=== PATIENT | female | born 1990 | race Caucasian/White ===

== ENCOUNTER 2019-07-18 13:19 | Emergency (ER) | payer MEDICAID, SELFPAY ==
[2019-07-18 13:56] VITALS: BP 108/62; PULSE 81; RESP 16; TEMP 36.6; O2SAT 98; BMI 18.4
--- NOTE | 2019-07-18 14:03 | ED_ITS ---
HPI - Skin/Abscess/Foreign Bdy General: Chief complaint: Skin/Abscess/Foreign Body Stated complaint: has MRSA/may be in blood Time Seen by Provider: 07/18/19 13:55 Source: patient Mode of arrival: ambulatory Limitations: no limitations History of Present Illness: HPI narrative: Patient was put on mupirocin ointment last week to treat a skin infection. Patient reports minimal i mprovement is noted to the area. Patient was sent here from urgent care for concerns. Patient appears well. Patient appears in no pain. Review of Systems General: Reports: 10 or more systems reviewed and unremarkable except in HPI and below Skin/Breast: Reports: rash PFSH ED PFSH: Statuses (acute, chronic, etc) shown below reflect problem list status as previously entered and may not be historically accurate Social History (Updated 07/16/19 @ 16:16 by Zandra Purvis LPN) Smoking and tobacco status: current every day smoker Female Reproductive History: Date of last menstrual period: 07/03/19 Physical Exam Const: COMMON NORMALS: no apparent distress and oriented x3 GENERAL APPEAR ANCE: cooperative HENMT: COMMON NORMALS: normocephalic, external ears normal, EAC's normal, TM's normal bilaterally and external nose normal HEAD & SCALP: normal to inspection and normocephalic FACE & SINUS: normal facial exam NOSE: external nose normal GENERAL EAR: hearing not grossly impaired EXTERNAL EAR: Yes external ears normal EXTERNAL AUDITORY CANAL: EAC's normal TYMPANIC MEMBRANE: TM's normal bilaterally MOUTH: oral and palatal mucosa normal THROAT: posterior oropharynx normal Eye: COMMON NORMALS: PERRL and EOMs intact bilaterally PUPIL: Yes PERRL Neck/C-Spine: COMMON NORMALS: full ROM and no lymphadenopathy Lymph: LYMPHATIC: no lymphedema noted Chest: COMMONS NORMALS: inspection of chest normal and palpation of chest normal Resp: COMMON NORMALS: normal respiratory effort and clear to auscultation bilaterally AUSCULTATION: clear to auscultation bilaterally Cardio: COMMON NORMALS: regular rate and regular rhythm RATE: regular rate RHYTHM: regular rhythm GI: COMMON NORMALS: normal to inspection, nondistended, normoactive bowel sounds and non-tender : COMMON NORMALS: Yes no CVA tenderness BLADDER/KIDNEY EXAM: Yes no CVA tenderness Back/Pelvis: COMMON NORMALS: no CVA tenderness and thoracic and lumbar spine normal to inspection Extremity: COMMON NORMALS: normal to inspection GENERAL: No edema Neuro: COMMON NORMALS: oriented x3, moves all extremities and no focal motor deficits Psych: COMMON NORMALS: mental status grossly normal and cooperative Skin: NARRATIVE SKIN EXAM: Crusted lesions are noted to the nape of the neck and the postauricular area of the right ear. Minimal area of surrounding of redness outside of the wounds. Patient also has some areas of eczema to the flexural areas to the upper extremities. Patient appears well. Patient appears in no pain. Course Vital Signs: Vital signs: Vital Signs Temperature 97.9 F 07/18/19 13:56 Pulse Rate 81 07/18/19 13:56 Respiratory Rate 16 07/18/19 13:56 Blood Pressure 108/62 07/18/19 13:56 Pulse Oximetry 98 07/18/19 13:56 MDM - Skin/Abscess/Foreign Bdy MDM Narrative: Medical decision making narrative: Patient here for concerns of persistent crusting rash. On exam we noted a folliculitis type rash to the nape of the neck and behind the right ear. There is some honey crusted lesions and drainage. Differential diagnosis includes folliculitis, impetigo, exacerbation of eczema, cellulitis. Reviewed exam with patient recommended treatment with clindamycin since of naproxen ointment did not clear the rash. Also recommend the use of a steroid such as triamcinolone for further treatment of her eczema as this may just be a secondary infection to outbreak of eczema. Patient reports understanding and agreed to plan. Discharge Plan Discharge Patient Disposition: Home, Self-Care Clinical Impression: Folliculitis Condition: Stable Prescriptions: New triamcinolone acetonide 0.1 % cream 1 applic TOPICAL BID Qty: 28.4 RF: 0 clindamycin HCl 150 mg capsule 300 mg PO Q8H 7 Days Qty: 42 RF: 0 No Action mecobalamin (vitamin B12) 1,000 mcg tablet,disintegrating 1,000 mcg SUBLINGUAL DAILY RF: 0 geriatric [id number] Tablet 1 tab PO DAILY RF: 0 biotin 5,000 mcg tablet,disintegrating 5,000 mcg PO DAILY RF: 0 mupirocin 2 % ointment 1 applic TOPICAL TID 7 Days Qty: 15 RF: 0 Discharge Orders: Discharge Order (Routine); Ordered 07/18/19 Ordered By: Chad Luciano Referrals: Michelle Ruiz FNP [Primary Care Provider] - Discharge Diet: Usual diet Discharge Activity: Increase activity as tolerated Patient Instructions: Eczema (ED), Folliculitis (ED) Activity Restrictions/Additional Instructions: Good skin care Use Vaseline to keep skin protected Drink plenty of water with medications Follow-up as needed for worsening symptoms return to ER for high fever or nausea and vomiting Coding Level of Care Code ED Program Control Analyst for Guillerminag Fwriddhi Exam Problem Focused
[2019-07-18 14:28] VITALS: BP 96/57; PULSE 85; RESP 18; O2SAT 97
== END 2019-07-18 14:29 | disposition home or self-care (01) ==
LOC: ER 17:03
PROVIDERS: Emergency Provider Nurse Practitioner Family; Family Provider Nurse Practitioner; PCP Nurse Practitioner
DX: L73.9 Follicular disorder, unspecified (principal); F17.200 Nicotine dependence, unspecified, uncomplicated
CPT/HCPCS: 99281

== ENCOUNTER 2019-07-21 23:05 | Emergency (ER) | payer MEDICAID, SELFPAY ==
[2019-07-21 23:25] VITALS: BP 127/80; PULSE 99; RESP 18; TEMP 36.7; O2SAT 100; BMI 18.4
--- NOTE | 2019-07-22 01:01 | ED_ITS ---
Entered by Cassy Aguila, acting as scribe for Bola Griffin DO Jul 21, 2019 23:05 HPI - General Adult General: Chief complaint: General Medical Stated complaint: possible allergic reaction Time Seen by Provider: 07/22/19 01:01 Source: patient Mode of arrival: ambulatory Limitations: no limitations History of Present Illness: HPI narrative: 28 yo f came to the er pov for a possible allergic reaction. Onset was yesterday. Pt states that she might have had an allegic reaction to clindamycin. Pt states that she has been on it for 3 days. Pt states that she has had a migraine and fever. Pt states that she has mrsa as well. MD complaint: possible allergic reaction Onset (ago): day(s) (last night) Severity: mild Quality: other (itching) Pain Consistency: constant Relieving factors: none Exacerbating factors: none Associated symptoms: Reports rash; Deny chest pain, dyspnea, headache(s), nausea, palpitations or vomiting Treatments prior to arrival: none Review of Systems General: Reports: other (negative unless marked ) Const: Reports: fever Eyes: Denies: change in vision or blurry vision ENMT: Denies: painful swallowing, swelling of lips/tongue or nose bleeds Card: Denies: chest pain, palpitations or irregular heart rhythm Resp: Reports: non-productive cough; Denies: shortness of breath, productive cough or wheezing GI: Denies: abdominal pain, nausea or vomiting : Denies: painful urination or blood in urine Skin/Breast: Reports: rash, itching and redness Neuro: Denies: headache or dizziness Psych: Denies: anxiety PFSH ED PFSH: Statuses (acute, chronic, etc) shown below reflect problem list status as previously entered and may not be historically accurate Social History (Updated 07/16/19 @ 16:16 by Zandra Purvis LPN) Smoking and tobacco status: current every day smoker Female Reproductive History: Date of last menstrual period: 07/03/19 Physical Exam Const: GENERAL APPEARANCE: well developed ORIENTATION/CONSCIOUSNESS: Yes oriented to person, Yes oriented to place and Yes oriented to time HENMT: COMMON NORMALS: normocephalic, external ears normal and external nose normal HEAD & SCALP: normocephalic FACE & SINUS: normal facial exam NOSE: external nose normal and no nasal discharge EXTERNAL EAR: Yes external ears normal MOUTH: tongue normal THROAT: posterior oropharynx normal Eye: COMMON NORMALS: PERRL, EOMs intact bilaterally and conjunctivae normal EYELID: eyelids normal CONJUNCTIVA: Yes conjunctivae normal PUPIL: Yes PERRL Neck/C-Spine: GENERAL: No tracheal deviation Chest: COMMONS NORMALS: inspection of chest normal CHEST: No tenderness Resp: COMMON NORMALS: clear to auscultation bilaterally EFFORT & INSPECTION: No tachypneic, No respiratory distress, No retractions, No uses accessory muscles and No tracheal deviation AUSCULTATION: clear to auscultation bilaterally, no rhonchi, no wheezes and lung sounds not diminished Cardio: COMMON NORMALS: regular rate and regular rhythm RATE: regular rate RHYTHM: regular rhythm HEART SOUNDS: no murmurs PERIPHERAL PULSES: radial pulses present GI: INSPECTION: No abdominal distension AUSCULTATION: No hyperactive bowel sounds and No hypoactive bowel sounds PALPATION: No guarding and No rigid PERCUSSION: no dullness to percussion and no tympanic to percussion : COMMON NORMALS: Yes no CVA tenderness BLADDER/KIDNEY EXAM: Yes no CVA tenderness Back/Pelvis: COMMON NORMALS: no CVA tenderness Neuro: SENSORIUM/ORIENTATION: Yes oriented to person, Yes oriented to place and Yes oriented to time Psych: COMMON NORMALS: mental status grossly normal Skin: GENERAL SKIN EXAM: erythema (Diffuse lacy maculopapular rash. No mary urticaria) Course Vital Signs: Vital signs: Vital Signs Temperature 98.0 F 07/22/19 02:06 Pulse Rate 62 07/22/19 02:06 Respiratory Rate 16 07/22/19 02:06 Blood Pressure 102/71 07/22/19 02:06 Pulse Oximetry 97 07/22/19 02:06 Discharge Plan Discharge Patient Disposition: Home, Self-Care Clinical Impression: Allergic reaction caused by a drug Qualifiers: Encounter type: initial encounter Qualified Code(s): T78.40XA - Allergy, unspecified, initial encounter Condition: Stable Prescriptions: New Bactrim DS 800-160 mg tablet 1 tab PO BID Qty: 20 RF: 0 Medrol (Laci) 4 mg tablets,dose pack See Rx Instructions .ROUTE .COMPLEX Qty: 21 RF: 0 Discontinued clindamycin HCl 150 mg capsule 300 mg PO Q8H 7 Days Qty: 42 RF: 0 No Action mecobalamin (vitamin B12) 1,000 mcg tablet,disintegrating 1,000 mcg SUBLINGUAL DAILY RF: 0 geriatric [id number]-ndar-isln Tablet 1 tab PO DAILY RF: 0 biotin 5,000 mcg tablet,disintegrating 5,000 mcg PO DAILY RF: 0 mupirocin 2 % ointment 1 applic TOPICAL TID 7 Days Qty: 15 RF: 0 triamcinolone acetonide 0.1 % cream 1 applic TOPICAL BID Qty: 28.4 RF: 0 Discharge Orders: Discharge Order (Routine); Ordered 07/22/19 Ordered By: Bola Griffin Referrals: Michelle Ruiz FNP [Primary Care Provider] - Discharge Diet: Usual diet Discharge Activity: Resume usual activity Activity Restrictions/Additional Instructions: Return for fevers greater than 100 despite 3 doses of antibiotics, worsening reaction with swelling to the face, trouble breathing, other concerning symptoms. Discharge Date/Time: 07/22/19 02:09 Coding Level of Care Code ED Marine Steam Fitter Helper for brock Flaherty The documentation recorded by the Mingo godoy Stephanie Lyn, accurately reflects the service I personally performed and the decisions made by Elias hadley Jeremy John, DO Jul 21, 2019 23:05
--- NOTE | 2019-07-22 01:03 | PC.NURSE ---
Patient states she thinks she is having an allergic reaction to her new medication, clindamycin. Patient states she has been running a fever with the highest being 102 today. Patient states she is very itchy. Patient states she has a MRSA infection and needs to be on an antibiotic.
[2019-07-22 01:09] VITALS: BP 125/63; PULSE 66; RESP 16; O2SAT 99
[2019-07-22] MEDS: predniSONE 20 mg Tablet 40 MG PO (01:31)
[2019-07-22] MEDS: diphenhydrAMINE 25 mg Capsule PO (01:31)
[2019-07-22] MEDS: famotidine 20 mg Tablet PO (01:31)
[2019-07-22 02:06] VITALS: BP 102/71; PULSE 62; RESP 16; TEMP 36.7; O2SAT 97
== END 2019-07-22 02:09 | disposition home or self-care (01) ==
PROVIDERS: Emergency Provider Emergency Medicine; Family Provider Nurse Practitioner; PCP Nurse Practitioner
DX: T78.40XA Allergy, unspecified, initial encounter (principal); T50.905A Adverse effect of unspecified drugs, medicaments and biological substances, initial encounter; F17.210 Nicotine dependence, cigarettes, uncomplicated
CPT/HCPCS: 99281; 99283; J7512

== ENCOUNTER → 2023-06-19 14:42 | Outpatient (BNVA) | payer OTHER, MEDICAID, SELFPAY | PROVIDERS: Family Provider Nurse Practitioner; PCP Nurse Practitioner; Visit Provider Registered Nurse Neonatal Intensive Care | DX: R52 Pain, unspecified (principal) | CPT/HCPCS: 87400 ==

== ENCOUNTER 2023-08-16 12:29 | Outpatient (CLI) | payer MEDICAID, SELFPAY ==
[2023-07-18 10:57] VITALS: BP 109/73; BMI 23.3
[2023-08-16 13:34] LABS: Estmated Average Glucose 91; Hemoglobin A1C 4.8 % (4.0-6.0)
[2023-08-16 13:52] LABS: Alanine Aminotransferase 16 U/L (0-33); Albumin Level 4.4 g/dL (3.5-5.2); Alkaline Phosphatase 78 U/L (35-105); Anion Gap 14.5 (5-19); Aspartate Amino Transferase 22 U/L (0-32); Blood Urea Nitrogen 8 mg/dL (6-20); Calcium 8.9 mg/dL (8.5-10.5); Carbon Dioxide 26 mmol/L (22-29); Chloride 103 mmol/L (98-107); Cholesterol 221 mg/dL (0-200); Globulin 3.1 g/dL (1.3-4.6); Glomerular Filtration Rate 114.4 mL/min (90-130); Glucose 110 mg/dL (65-115); HDL Cholesterol 69 mg/dL (60-100); LDL Cholesterol Calculated 126 mg/dL (50-129); LDL HDL Ratio 1.83 RATIO (0.00-3.22); Osmolality Calculated 289 mOsm/kg (285-295); Potassium 3.5 mmol/L (3.5-5.1); Sodium 140 mmol/L (136-145); Thyroid Stimulating Hormone 1.77 uIU/mL (0.27-4.20); Total Bilirubin 0.3 mg/dL (0.15-1.2); Total Protein 7.5 g/dL (6.6-8.7); Triglycerides 131 mg/dL (0-150)
== END 2023-08-16 12:30 | disposition home or self-care (01) ==
LOC: LAB 12:31
PROVIDERS: Family Provider Nurse Practitioner; PCP Nurse Practitioner; Visit Provider Psychiatry & Neurology Psychiatry
DX: Z79.899 Other long term (current) drug therapy (principal); F43.12 Post-traumatic stress disorder, chronic
CPT/HCPCS: 36415; 80053; 80061; 83036; 84443